=== PATIENT | female | born 1985 | race American Indian/Alaskan Native ===

== ENCOUNTER 2021-03-05 09:29 | Emergency (ER) | payer MEDICAID ==
[2021-03-05 09:40] VITALS: BP 116/46
--- NOTE | 2021-03-05 09:50 | Event Note ---
ED Screening Note Date of service: 03/05/21 Time: 09:48 ED Screening Note: Patient complains of chest pain x1 week and was referred here by her INSTRUCTIONAL MATERIALS DIRECTOR 6 months Also complains of gum swelling This initial assessment/diagnostic orders/clinical plan/treatment(s) is/are subject to change based on patients health status, clinical progression and re- assessment by fellow clinical providers in the ED. Further treatment and workup at subsequent clinical providers discretion. Patient/guardian urged not to elope from the ED as their condition may be serious if not clinically assessed and managed. Initial orders include: Labs EKG
[2021-03-05 10:47] LABS: Basophils # (Auto) 0.1 K/mm3 (0.0-0.1); Basophils % (Auto) 0.6 % (0.0-1.8); Eosinophils # (Auto) 0.1 K/mm3 (0.0-0.4); Hematocrit 30.1 % (30.3-42.9); Hemoglobin 10.2 gm/dl (10.1-14.3); Lymphocytes # (Auto) 1.5 K/mm3 (1.2-5.4); Lymphocytes % (Auto) 16.6 % (13.4-35.0); Mean Corpuscular HGB Conc 34 % (30-34); Mean Corpuscular Volume 89 fl (79-97); Monocytes # (Auto) 0.7 K/mm3 (0.0-0.8); Monocytes % (Auto) 7.6 % (0.0-7.3); Platelet Count 213 K/mm3 (140-440); Red Blood Count 3.39 M/mm3 (3.65-5.03)
[2021-03-05 11:05] LABS: Alanine Aminotransferase 22 units/L (7-56); Albumin 3.2 g/dL (3.9-5); Blood Urea Nitrogen 8 mg/dL (7-17); Calcium 8.7 mg/dL (8.4-10.2); Hemolysis Index 0
[2021-03-05 11:10] LABS: BUN/Creatinine Ratio 16
--- NOTE | 2021-03-05 14:04 | Emergency Department Report ---
ED General Adult HPI - General Chief complaint: Chest Pain Stated complaint: CHEST PAIN, SWOLLEN GUM Time Seen by Provider: 03/05/21 13:54 Source: patient Mode of arrival: Ambulatory Limitations: No Limitations - History of Present Illness Initial comments: Patient is 36 years old female 2 para 1 at 6-month . Patient presented to the ER complaining of diffuse chest pain for approximately 1 week now. Patient described her pain as aching increases when she move her arms and change position. Patient described her pain as 2 out of 10. Patient denied any shortness of breath, fever, chills or cough. Patient also complaining of gum s welling mainly to the right upper area. Patient denied any difficulty swallowing or opening her mouth. - Related Data Allergies Allergy/AdvReac Type Severity Reaction Status Date / Time No Known Allergies Allergy Verified 03/05/21 09:40 ED Review of Systems ROS: Stated complaint: CHEST PAIN, SWOLLEN GUM Other details as noted in HPI Comment: All other systems reviewed and negative Constitutional: denies: chills, fever Cardiovascular: denies: chest pain Gastrointestinal: denies: abdominal pain, nausea Neurological: denies: headache, weakness, numbness ED Past Medical Hx - Social History Smoking Status: Never Smoker Substance Use Type: None ED Physical Exam - General Limitations: No Limitations General appearance: alert, in no apparent distress - Head Head exam: Present: atraumatic, normocephalic, normal inspection - Eye Eye exam: Present: normal appearance - ENT ENT exam: Present: other (Localized gum swelling, right upper. No abscess.) - Neck Neck exam: Present: normal inspection, full ROM. Absent: tenderness, meningismus - Respiratory Respiratory exam: Present: normal lung sounds bilaterally - Cardiovascular Cardiovascular Exam: Present: regular rate, normal rhythm, normal heart sounds - GI/Abdominal GI/Abdominal exam: Present: soft, normal bowel sounds. Absent: distended, tenderness, guarding, rebound, rigid, organomegaly, mass, bruit, pulsatile mass, hernia - Extremities Exam Extremities exam: Present: normal inspection, full ROM, normal capillary refill - Back Exam Back exam: Present: normal inspection, full ROM. Absent: CVA tenderness (R), CVA tenderness (L) - Neurological Exam Neurological exam: Present: alert, oriented X3, CN II-XII intact - Psychiatric Psychiatric exam: Present: normal mood - Skin Skin exam: Present: warm, intact, normal color ED Course Vital Signs 03/05/21 09:38 Temperature 98.5 F Pulse Rate 86 Respiratory 18 Rate Blood Pressure 116/46 O2 Sat by Pulse 98 Oximetry ED Medical Decision Making - Lab Data Result diagrams: 03/05/21 10:10 03/05/21 10:10 - Medical Decision Making Patient is 36 years old female 2 para 1 at 6-month . Patient presented to the ER complaining of diffuse chest pain for approximately 1 week now. Patient described her pain as aching increases when she move her arms and change position. Patient described her pain as 2 out of 10. Patient denied any shortness of breath, fever, chills or cough. Patient also complaining of gum swelling mainly to the right upper area. Patient denied any difficulty swallowing or opening her mouth. EKG is unremarkable. Labs reviewed and is negative for acute finding. Patient given amoxicillin and Tylenol 3 and advised to follow-up with her dentist in the next 2 to 3 days and her OB in the next 2 to 3 days and to return to the ER if she develop any new symptoms. Critical care attestation.: If time is entered above; I have spent that time in minutes in the direct care of this critically ill patient, excluding procedure time. ED Disposition Clinical Impression: Atypical chest pain, Gingivitis, acute Disposition: -01 TO HOME OR SELFCARE Is pt being admited?: No Condition: Stable Instructions: Nonspecific Chest Pain, Adult Referrals: PRIMARY CARE, [Primary Care Provider] - 3-5 Days
[2021-03-05 14:35] LABS: INR 1.01 (0.87-1.13); Partial Thromboplastin Time 29.9 Sec. (24.2-36.6)
--- NOTE | 2021-03-05 14:51 | Electrocardiograph Report ---
[facility] Test Date: 2021-03-05 Test Time: 09:49:17 Pat Name: MATT ESPINOSA Department: Room: Gender: F Instructional Aide: : 1985 Requested By: ED DOC Order Number: [id number] Reading MD: Can Lynne Measurements Intervals Ethel Rate: 86 P: 4 OR: 144 QRS: 33 QRSD: 74 T: 34 QT: 344 QTc: 411 Interpretive Statements Sinus rhythm No previous ECG available for comparison Electronically Signed On 03-05-2021 14:51:07 EDT by Can Lynne
== END 2021-03-05 14:45 | disposition home or self-care (01) ==
LOC: ED 09:29
DX: O99.611 Diseases of the digestive system complicating pregnancy, first trimester (principal); O26.891 Other specified pregnancy related conditions, first trimester; K05.10 Chronic gingivitis, plaque induced; R07.89 Other chest pain; Z3A.01 Less than 8 weeks gestation of pregnancy
CPT/HCPCS: 36415; 80053; 84484; 85025; 85610; 85730; 93005

== ENCOUNTER 2021-04-22 14:34 | Outpatient (CLI) | payer MEDICAID ==
[2021-04-22] MEDS ORDERED: LACTATED RINGERS 1,000 ML IV ONE (15:32)
[2021-04-22 15:38] VITALS: BP 105/66
[2021-04-22 16:11] LABS: Bacteria,Urine 1+ /HPF (Negative); Bilirubin,Urine NEG (Negative); Blood,Urine NEG (Negative); Color,Urine Straw (Yellow); Mucus,Urine FEW /HPF; Protein,Urine <15 mg/dL mg/dL (Negative); Urobilinogen,Urine < 2.0 mg/dL (<2.0); WBC,Urine < 1.0 /HPF (0.0-6.0)
== END 2021-04-22 17:35 | disposition home or self-care (01) ==
LOC: TRG 14:34 → APU 14:35 → TRG 17:35
DX: Z34.93 Encounter for supervision of normal pregnancy, unspecified, third trimester (principal); Z3A.29 29 weeks gestation of pregnancy
CPT/HCPCS: 59025; 81001